=== PATIENT | female | born 1970 | race Hispanic/Latino ===

== ENCOUNTER → 2024-02-16 10:36 | Outpatient (REF) | payer OTHER, SELFPAY ==
[2024-02-16 11:55] LABS: % Basophils 0.4 % (0-2); % Eosinophils 3.7 % (0-6); % Immature Granulocytes 0.4 % (0-0.5); % Lymphocytes 34.1 % (20.5-51.1); % Monocytes 5.7 % (1.7-9.3); % Neutrophils 55.7 % (42.2-75.2); Absolute Eosinophils 0.2 10^3/uL (0-0.7); Absolute Lymphocytes 1.9 10^3/uL (1.2-3.4); Absolute Monocytes 0.3 10^3/uL (0.1-0.6); Absolute Neutrophils 3.1 10^3/uL (1.4-6.5); Hematocrit 43.7 % (37.0-47.0); Hemoglobin 14.3 g/dL (12.0-16.0); Mean Corp Hgb Conc. 32.7 g/dL (33.0-37.0); Mean Corpuscular Hgb 31.9 pg (27.0-31.0); Mean Corpuscular Volume 97.5 fL (81.0-99.0); Mean Platelet Volume 8.6 fL (7.4-10.4); Nucleated Red Blood Cells % 0 %; Platelet Count 282 10^3/uL (130-400); Red Blood Cell Count 4.48 10^6/uL (4.20-5.40); Red Cell Dist. Width 12.8 % (11.5-14.5); White Blood Cell Count 5.6 10^3/uL (4.8-10.8)
[2024-02-16 12:43] LABS: ALT (SGPT) 36 U/L (0-35); AST (SGOT) 28 U/L (14-36); Albumin 4.4 g/dl (3.5-5.0); Alkaline Phosphatase 80 U/L (38-126); Blood Urea Nitrogen 20 mg/dl (7-17); Calcium 9.2 mg/dl (8.4-10.2); Carbon Dioxide 26 mmol/L (22-30); Chloride 108 mmol/L (98-107); Glucose 100 mg/dl (70-99); Potassium 4.7 mmol/L (3.5-5.1); Sodium 142 mmol/L (135-145); Total Bilirubin 0.2 mg/dl (0.2-1.3); Total Protein 7.2 g/dl (6.3-8.2); eGFR > 60.00
[2024-02-16 14:41] LABS: Glycohemoglobin (HgbA1c) 5.6 % (4.0-5.6)
== END ==
LOC: CLINIC 10:36
PROVIDERS: ATTENDING PHYSICIAN Nurse Practitioner Adult Health
DX: Z12.11 Encounter for screening for malignant neoplasm of colon (principal); Z00.00 Encounter for general adult medical examination without abnormal findings; E78.2 Mixed hyperlipidemia; K21.9 Gastro-esophageal reflux disease without esophagitis; R73.03 Prediabetes; R53.83 Other fatigue
CPT/HCPCS: 36415; 80053; 83036; 85025

== ENCOUNTER 2024-02-25 14:11 | Emergency (ER) | payer SELFPAY ==
[2024-02-25 14:28] VITALS: BP 125/98
--- NOTE | 2024-02-25 14:36 | ED.GENMED ---
ED Provider Triage
<Yolis Newman PA-C - Last Filed: 02/25/24 14:37>
-
Patient seen by provider in Triage?: Seen in Triage
53-year-old female with a history of H. pylori sent from the [facility] for upper abdominal pain rating to her back for several days as well as 2 episodes of small amount of blood in her vomit this morning. Patient feels nauseated. The pain is
making her have pain with walking. She is not anticoagulated
No diarrhea
A medical screening examination has been initiated by a qualified medical provider. Based on the assessment performed at this time, it has been determined that an emergent medical condition may exist and the patient has been informed that further
medical evaluation and possible additional diagnostic testing may be needed.
HPI: This is a medical evaluation conducted in person to initiate diagnostic evaluation and provide initial therapeutics. Please see further documentation by the treating clinician.
GENERAL: Alert , in no apparent distress
ENT: No visible abnormalities
LUNGS: No acute respiratory distress
NEUROLOGICAL: Alert and oriented
SKIN: Skin intact. No visible changes.
MUSCULOSKELETAL: Moving extremities normally
PSYCH: Normal and appropriate interaction.
History of Present Illness
<Yolis Newman PA-C - Last Filed: 02/25/24 14:37>
General
Chief Complaint: Abdominal Symptoms
Time Seen by Provider: 02/25/24 17:40
<Erinn Rodriguez DO - Last Filed: 02/25/24 20:33>
History of Present Illness
History of Present Illness:
53-year-old female with history of reported gastric issues presenting to the emergency department multiple complaints. Patient presents from a clinic with concern of vomiting blood, sent in by doctor. Patient is Surinamese-speaking with
interpretation by stone circular sawyer device. Patient reports that she chronically has abdominal discomfort and pain with known GI issues. Per clinic doctor, history of H. pylori. In the past 5 days, noted a worsening of abdominal discomfort. She also
reported some right-sided back pain. Patient clarified that she did not vomit blood, she coughed this morning, had difficulty expectorating her mucus, however when she did, it was blood-tinged. Denies any history of recent travel, recent surgery,
exogenous estrogen, or any history of blood clots. She has had no further coughing. Denies EtOH. Denies chest pain or difficulty breathing. Denies fever. Denies blood in her stool. Reports abdominal discomfort is upper, with burning into her
throat. Denies additional medical complaints
Past History
<Yolis Newman PA-C - Last Filed: 02/25/24 14:37>
Past History
ED Past Medical History: HTN
ED Past Surgical History: None
Social History
Tobacco: Non-smoker
Alcohol: None
Drug: None
Personal:
Living: with family
Phy Exam
<Erinn Rodriguez DO - Last Filed: 02/25/24 20:33>
Physical Exam
Physical Exam:
General: Well-appearing, no clinical signs of dehydration, nontoxic and in no acute distress
HEENT: protecting airway
Neck: appears supple
CV: Normal heart rate, regular rhythm, no evidence of cyanosis
Resp: No accessory muscle use, no increased work of breathing, lungs clear to auscultation bilaterally
Abd: Soft and non-distended, generalized nonfocal tenderness without rebound or guarding
Extremities: No deformities, no swelling, no erythema. Reproducible tenderness to the right breast back. No CVA tenderness
Neuro: alert, no focal neurologic deficit
: deferred
Rectal: deferred
Psych: Normal affect
Skin: Intact
Course
<Yolis Newman PA-C - Last Filed: 02/25/24 14:37>
Orders/Labs/Results
Orders:
Orders
02/25/24 14:36
CR Chest - 2 Views Urgent
Comment:
Reason For Exam: epigstric pain, ,vomiting blood
02/25/24 14:38
Complete Blood Count/With Diff Urgent
Comprehensive Metabolic Panel Urgent
Lipase Urgent
Urinalysis Reflex To Culture Urgent
Date Specimen was Collected: 02/25/24
Time Specimen was Collected: 14:35
02/25/24 18:22
CT Abd/pelvis W Iv Cont Urgent
Comment:
Reason For Exam: generalized abdominal pain
Famotidine [Pepcid] 20 mg IV NOW STA
Mag Hydrox/Al Hydrox/Simeth [Maalox] 30 ml PO NOW STA
02/25/24 18:44
D-Dimer Urgent
Abnormal Lab Results
02/25/24
14:38
MCH 31.2 H pg
(27.0-31.0)
MCHC 32.0 L g/dL
(33.0-37.0)
ALT 49 H U/L
(0-35)
02/25/24 14:38
02/25/24 14:38
Vital Signs
Initial and Last Documented VS:
Initial Vital Signs
Temp Pulse Resp BP Pulse Ox
98.4 F 76 16 125/98 98
02/25/24 14:28 02/25/24 14:28 02/25/24 14:28 02/25/24 14:28 02/25/24 14:28
Last Documented Vital Signs
Temp Pulse Resp BP Pulse Ox
98.4 F 69 20 110/80 97
02/25/24 14:28 02/25/24 19:00 02/25/24 19:00 02/25/24 19:00 02/25/24 19:00
<Erinn Rodriguez, DO - Last Filed: 02/25/24 20:33>
Orders/Labs/Results
Orders:
Orders
02/25/24 14:36
CR Chest - 2 Views Urgent
Comment:
Reason For Exam: epigstric pain, ,vomiting blood
02/25/24 14:38
Complete Blood Count/With Diff Urgent
Comprehensive Metabolic Panel Urgent
Lipase Urgent
Urinalysis Reflex To Culture Urgent
Date Specimen was Collected: 02/25/24
Time Specimen was Collected: 14:35
02/25/24 18:22
CT Abd/pelvis W Iv Cont Urgent
Comment:
Reason For Exam: generalized abdominal pain
Famotidine [Pepcid] 20 mg IV NOW STA
Mag Hydrox/Al Hydrox/Simeth [Maalox] 30 ml PO NOW STA
02/25/24 18:44
D-Dimer Urgent
Abnormal Lab Results
02/25/24
14:38
MCH 31.2 H pg
(27.0-31.0)
MCHC 32.0 L g/dL
(33.0-37.0)
ALT 49 H U/L
(0-35)
02/25/24 14:38
02/25/24 14:38
Vital Signs
Initial and Last Documented VS:
Initial Vital Signs
Temp Pulse Resp BP Pulse Ox
98.4 F 76 16 125/98 98
02/25/24 14:28 02/25/24 14:28 02/25/24 14:28 02/25/24 14:28 02/25/24 14:28
Last Documented Vital Signs
Temp Pulse Resp BP Pulse Ox
98.4 F 69 20 110/80 97
02/25/24 14:28 02/25/24 19:00 02/25/24 19:00 02/25/24 19:00 02/25/24 19:00
<Erinn Rodriguez, DO - Last Filed: 02/25/24 20:33>
MDM/Problems Addressed
MDM/Problems Addressed:
53-year-old female with history of GI issues and H. pylori presenting for abdominal discomfort and an episode of blood-tinged sputum with coughing. Vital signs on arrival are normal.
On exam, patient is very well-appearing, no acute distress or discomfort. Unremarkable cardiac and pulmonary exam. No active coughing. Regarding report of coughing up blood, seems less consistent with a PE or primary pulmonary process. Patient
notes no further coughing episodes, no difficulty breathing, no additional PE risk factors. Her primary concern is abdominal discomfort and burning discomfort in her throat. Will send a D-dimer for screening, ultimately low risk. Regarding GI
complaints, suspected possible gastric ulcer versus gastritis. Reassuring examination without focal tenderness. Patient with generalized tenderness. Patient had screening laboratory analysis prior to my assessment, unremarkable hemoglobin.
Without significant concern for GI hemorrhage. Plan for GI cocktail and CT abdominal imaging.
20:00 - Dimer is undetectable, again without concern for PE. Pending CT imaging.
20:30 -CT without acute pathology and patient remains hemodynamically stable, notes some interval improvement of symptoms. Continue to suspect GI distress without concern for significant GI hemorrhage. Extensive conversation had with patient and
at bedside via panel machine setter. Will start on pantoprazole, and will provide information for GI. Diet modification discussed. Strict return precautions discussed and patient verbalized understanding
<Erinn Rodriguez DO - Last Filed: 02/25/24 20:33>
*Critical Care Note
Total Time (30-74mins, 75-104mins- exclusive of procedures): Not Applicable
ED Attending Note
<Yolis Newman PA-C - Last Filed: 02/25/24 14:37>
-
Portions of this chart may have been created with voice recognition software.� Occasional wrong word or��sound alike� substitutions may have occurred due to the inherent limitations of voice recognition software.
Discharge Plan
Departure
Prescriptions:
No Action
acetaminophen 325 MG tablet
650 mg PO Q4HPRN PRN (Reason: mild pain) Qty: 1 0RF
ibuprofen 200 MG tablet
400 - 600 mg PO Q6HPRN PRN (Reason: moderate pain) Qty: 1 0RF
oxycodone 5 MG tablet
5 mg PO Q4HPRN PRN (Reason: breakthrough/severe pain) Qty: 20 0RF
Referrals:
Jessie Junior MD [Family Provider] -
Interventions
Interventions:
*Risk Screen - Suicide Last Done: 02/25/24 14:28
*General Assessment Last Done: 02/25/24 18:02
*Neglect/Abuse Screening Last Done: 02/25/24 14:28
ED- Fall Risk Assessment Last Done: 02/25/24 18:02
*ED COVID-19 Vaccine History Last Done: 02/25/24 18:02
LB-Kbuspt-Uzqsvlpkyn Assessment Last Done: 02/25/24 18:02
Discharge Date and Time
Print Language: BENGALI
[2024-02-25 14:56] LABS: % Basophils 0.3 % (0-2); % Eosinophils 3.6 % (0-6); % Immature Granulocytes 0.3 % (0-0.5); % Lymphocytes 46.5 % (20.5-51.1); % Monocytes 6.4 % (1.7-9.3); % Neutrophils 42.9 % (42.2-75.2); Absolute Eosinophils 0.2 10^3/uL (0-0.7); Absolute Lymphocytes 2.8 10^3/uL (1.2-3.4); Absolute Monocytes 0.4 10^3/uL (0.1-0.6); Absolute Neutrophils 2.6 10^3/uL (1.4-6.5); Hematocrit 43.4 % (37.0-47.0); Hemoglobin 13.9 g/dL (12.0-16.0); Mean Corpuscular Hgb 31.2 pg (27.0-31.0); Mean Corpuscular Volume 97.5 fL (81.0-99.0); Mean Platelet Volume 8.6 fL (7.4-10.4); Nucleated Red Blood Cells % 0 %; Platelet Count 259 10^3/uL (130-400); Red Blood Cell Count 4.45 10^6/uL (4.20-5.40); Red Cell Dist. Width 12.7 % (11.5-14.5); White Blood Cell Count 6.1 10^3/uL (4.8-10.8)
[2024-02-25 15:08] LABS: Urine Albumin Negative (Neg - Trace); Urine Bilirubin Negative (Negative); Urine Character Clear (Clear); Urine Color Yellow; Urine Glucose Negative (Negative); Urine Ketone Negative (Negative); Urine Leukocyte Negative (Negative); Urine Nitrite Negative (Negative); Urine Occult Blood Negative (Negative); Urine Urobilinogen Negative (Neg - 1+)
[2024-02-25 15:22] LABS: ALT (SGPT) 49 U/L (0-35); AST (SGOT) 36 U/L (14-36); Albumin 4.6 g/dl (3.5-5.0); Alkaline Phosphatase 94 U/L (38-126); Blood Urea Nitrogen 14 mg/dl (7-17); Calcium 9.2 mg/dl (8.4-10.2); Carbon Dioxide 26 mmol/L (22-30); Chloride 106 mmol/L (98-107); Glucose 95 mg/dl (70-99); Lipase 95 U/L (23-300); Potassium 4.1 mmol/L (3.5-5.1); Sodium 141 mmol/L (135-145); Total Bilirubin 0.3 mg/dl (0.2-1.3); Total Protein 7.4 g/dl (6.3-8.2); eGFR > 60.00
[2024-02-25 18:11] VITALS: BP 124/74
[2024-02-25 18:49] VITALS: BMI 30.6
[2024-02-25] MEDS: MAALOX 30 ML PO (18:50)
[2024-02-25] MEDS: PEPCID 20 MG IV (18:50)
[2024-02-25 18:53] VITALS: BP 109/75
[2024-02-25 19:00] VITALS: BP 110/80
[2024-02-25 19:05] LABS: D-Dimer < 0.27 ug/mlFEU (0.00-0.50)
[2024-02-25 20:43] VITALS: BP 100/61
== END 2024-02-25 20:56 | disposition home or self-care (01) ==
LOC: EMR 14:11
PROVIDERS: Physician Assistant; EMERGENCY PHYSICIAN Student in an Organized Health Care Education/Training Program; FAMILY PHYSICIAN Student in an Organized Health Care Education/Training Program
DX: K92.0 Hematemesis (principal); R10.9 Unspecified abdominal pain; I10 Essential (primary) hypertension; Z86.19 Personal history of other infectious and parasitic diseases
CPT/HCPCS: 99284; 96374; 71046; 74177; 80053; 81003; 83690; 85025; 85379; Q9967

== ENCOUNTER → 2024-04-03 11:29 | Outpatient (REF) | payer OTHER, SELFPAY ==
[2024-04-05 04:32] LABS: IgA 272 mg/dl (70-400)
[2024-04-06 03:52] LABS: H. pylori Breath Test Negative (Negative)
[2024-04-06 09:45] LABS: tTG IgA Antibody <1.02 FLU (0.00-4.99)
== END ==
LOC: CLINIC 11:29
PROVIDERS: ATTENDING PHYSICIAN Nurse Practitioner Adult Health
DX: R10.13 Epigastric pain (principal); Z86.19 Personal history of other infectious and parasitic diseases
CPT/HCPCS: 36415; 82784; 83013; 83516; 86231

== ENCOUNTER → 2024-06-19 11:30 | Outpatient (REF) | payer OTHER, SELFPAY ==
[2024-06-19 11:56] LABS: Hematocrit 45.1 % (37.0-47.0); Hemoglobin 14.9 g/dL (12.0-16.0); Mean Corpuscular Hgb 31.8 pg (27.0-31.0); Mean Corpuscular Volume 96.4 fL (81.0-99.0); Mean Platelet Volume 8.6 fL (7.4-10.4); Platelet Count 296 10^3/uL (130-400); Red Blood Cell Count 4.68 10^6/uL (4.20-5.40); Red Cell Dist. Width 13.3 % (11.5-14.5); White Blood Cell Count 6.3 10^3/uL (4.8-10.8)
== END ==
LOC: CLINIC 11:30
PROVIDERS: ATTENDING PHYSICIAN Nurse Practitioner Adult Health
DX: R10.13 Epigastric pain (principal); K21.9 Gastro-esophageal reflux disease without esophagitis
CPT/HCPCS: 36415; 85027

== ENCOUNTER → 2024-06-22 17:40 | Outpatient (REF) | payer OTHER, SELFPAY ==
[2024-07-01 01:22] LABS: HPV, High Risk Not Detected; HPV, High Risk Source Cervical
== END ==
LOC: CLINIC 17:40
PROVIDERS: ATTENDING PHYSICIAN Nurse Practitioner Adult Health
DX: R10.13 Epigastric pain (principal); K21.9 Gastro-esophageal reflux disease without esophagitis
CPT/HCPCS: 82270; 87624

== ENCOUNTER 2024-07-29 06:17 | Day surgery (SDC) | payer OTHER, SELFPAY | END 2024-07-29 10:26 | disposition home or self-care (01) | LOC: GI 06:17 | PROVIDERS: ATTENDING PHYSICIAN Internal Medicine Gastroenterology | DX: Z12.11 Encounter for screening for malignant neoplasm of colon (principal); K64.8 Other hemorrhoids; R10.13 Epigastric pain; K29.70 Gastritis, unspecified, without bleeding; K31.A19 Gastric intestinal metaplasia without dysplasia, unspecified site | CPT/HCPCS: 45380; 43239; 88305; 88342 ==

== ENCOUNTER → 2024-09-14 09:38 | Outpatient (REF) | payer OTHER, SELFPAY | LOC: HWRAD 09:38 | PROVIDERS: ATTENDING PHYSICIAN Internal Medicine Gastroenterology | DX: R10.13 Epigastric pain (principal) | CPT/HCPCS: 76700 ==

== ENCOUNTER → 2024-09-28 18:28 | Outpatient (REF) | payer OTHER, SELFPAY | LOC: WDC 18:28 | PROVIDERS: ATTENDING PHYSICIAN Nurse Practitioner Adult Health | DX: Z12.31 Encounter for screening mammogram for malignant neoplasm of breast (principal) | CPT/HCPCS: 77063; 77067 ==

== ENCOUNTER 2024-11-11 06:25 | Day surgery (SDC) | payer OTHER, SELFPAY | END 2024-11-11 14:29 | disposition home or self-care (01) | LOC: GI 06:25 | PROVIDERS: ATTENDING PHYSICIAN Internal Medicine Gastroenterology | DX: K29.70 Gastritis, unspecified, without bleeding (principal); K31.A19 Gastric intestinal metaplasia without dysplasia, unspecified site; K31.A11 Gastric intestinal metaplasia without dysplasia, involving the antrum | CPT/HCPCS: 43239; 88305; 88342; 93005 ==

== ENCOUNTER → 2025-02-26 11:24 | Outpatient (REF) | payer OTHER, SELFPAY ==
[2025-02-26 12:37] LABS: ALT (SGPT) 41 U/L (0-35); AST (SGOT) 27 U/L (14-36); Albumin 4.8 g/dl (3.5-5.0); Alkaline Phosphatase 94 U/L (38-126); Blood Urea Nitrogen 20 mg/dl (7-17); Calcium 9.5 mg/dl (8.4-10.2); Carbon Dioxide 26 mmol/L (22-30); Chloride 106 mmol/L (98-107); Glucose 97 mg/dl (70-99); HDL Cholesterol 67 mg/dl; LDL Cholesterol, Calculated 170 mg/dl; Potassium 4.6 mmol/L (3.5-5.1); Sodium 141 mmol/L (135-145); Total Protein 7.9 g/dl (6.3-8.2); Very Low Density Lipoprotein 19 mg/dl (0-30); eGFR > 60.00
== END ==
LOC: CLINIC 11:24
PROVIDERS: ATTENDING PHYSICIAN Nurse Practitioner Adult Health
DX: E78.2 Mixed hyperlipidemia (principal)
CPT/HCPCS: 36415; 80053; 80061; 84443